=== PATIENT | female | born 2000 | race Caucasian/White ===

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

== ENCOUNTER → 2019-01-14 | Outpatient (CLI) | payer OTHER ==
--- NOTE | 2019-01-14 13:40 | Diagnostic Imaging Report ---
PROCEDURE: US Non-ob pelvis comp/trans. TECHNIQUE: Multiple real-time grayscale images were obtained of the pelvis in various projections endovaginally. Transabdominal imaging was also performed. INDICATION: Pelvic pain. FINDINGS: There are no prior studies available for comparison. The uterus is nongravid and not enlarged measuring 7.1 x 4.8 x 2.9 cm. The endometrial lining is not thickened measuring 5 Mm. There is no focal mass involving the uterus to suggest a fibroid. The left ovary was visualized and was generally unremarkable. The right ovary could not be identified with certainty as the pelvis was obscured by bowel gas. There is no pelvic mass or free fluid collection noted. IMPRESSION: 1. There is no evidence for an acute pelvic abnormality; however, part of the pelvis including the right ovary were obscured by overlying bowel gas. 2. If clinical concern regarding an acute abnormality persists, then CT will be recommended for further study. Dictated by: Dictated on workstation # [id number]
== END ==
LOC: RAD 11:12
PROVIDERS: ATTEND Nurse Practitioner
DX: R10.2 Pelvic and perineal pain (principal)
CPT/HCPCS: 76830; 76856

== ENCOUNTER 2019-03-15 17:51 | Emergency (ER) | payer OTHER ==
[~2019-03-15] VITALS: Ht 167.6 cm; Wt 54.0 kg
[~2019-03-15 17:51] MED LIST changes: -OMEP20CA12 PO; +OMEP20CA13 PO
--- NOTE | 2019-03-15 17:56 | NUR ---
pt c/o nausea w/o vomiting and denies diarrhea. pt has h/o constipation but denies this currently. pt also relates h/o hietel hernia. pt points to bilateral upper quads and epigastric area where pain is at. pt denies dyspnea and no acute sighns of dyspnea noted. lungs cta bilaterally. boyfriend says he mario needs to come out. pt denies ua c/os. c/o vaginal pain then also pointed to pelvic area for pain as well but couldnt tell me which abd area hurts worse. lmp just got done. abd soft nondistended tender to palpation bilateral left quads and epigastric area only. pt had facial grimace with palpation of epigastric area. done dae pt 1805.
--- NOTE | 2019-03-15 17:56 | NUR ---
pt here with " boyfriend". pt alert gcs 15. pt c/o abd pain x 1 yr. pt relates seen 1 yr ago and was told gallbladder does not need to come out. pain rating 5. pt also c/o nause
--- OUTSIDE RECORDS SUMMARY | 2019-03-15 17:57 | XMS REPORT | Continuity of Care Document ---
Author Organization Unknown Address Unknown Phone Unavailable Allergies There is no data. Medications There is no data. Problems Date Dx Coded Attending Type Code Diagnosis Diagnosed By 04/19/2009 CLIFF MONTES APRN 300.00 AN ANXIETY UNSPEC 04/19/2009 CLIFF MONTES APRN 311 MO DEPRESS NOS 04/19/2009 CLIFF MONTES APRN 312.9 UNSPECIFIED DISTURBANCE OF CONDUCT 08/16/2009 CLIFF MONTES APRN 616.10 VAGINITIS VULVOVAGINITIS UNSPECIFIED 05/17/2014 CLIFF MONTES APRN V25.9 CONTRACEPTION MANAGEMENT 05/17/2014 CLIFF MONTES APRN V74.5 STD SCREEN Procedures Code Description [place] [address] TEST, URINE (IN-HOUSE) 05/17/2014 J1050 DEPO PROVERA 05/17/2014 29865 THERAPUTIC INJ SQ/IM 05/17/2014 81364 GC/CHLAM URINE (STATE) 05/18/2014 Results Test Result Range CMP - 01/09/19 16:32 GLUCOSE 55 mg/dL 65-99 UREA NITROGEN (BUN) 9 mg/dL 7-25 CREATININE 0.74 mg/dL 0.50-1.10 eGFR NON-AFR. CITIZEN OF [place] 117 mL/min/1.73m2 > OR=60 eGFR 135 mL/min/1.73m2 > OR=60 BUN/CREATININE RATIO NOT APPLICABLE (calc) 6-22 SODIUM 141 mmol/L 135-146 POTASSIUM 4.1 mmol/L 3.5-5.3 CHLORIDE 106 mmol/L 98-110 CARBON DIOXIDE 29 mmol/L 20-32 CALCIUM 9.7 mg/dL 8.6-10.2 PROTEIN, TOTAL 7.4 g/dL 6.1-8.1 ALBUMIN 4.8 g/dL 3.6-5.1 GLOBULIN 2.6 g/dL (calc) 1.9-3.7 ALBUMIN/GLOBULIN RATIO 1.8 (calc) 1.0-2.5 BILIRUBIN, TOTAL 0.4 mg/dL 0.2-1.2 ALKALINE PHOSPHATASE 46 U/L 33-115 AST 16 U/L 10-30 ALT 14 U/L 6-29 CBC - 01/09/19 16:32 WHITE BLOOD CELL COUNT 7.1 Thousand/uL 3.8-10.8 RED BLOOD CELL COUNT 4.07 Million/uL 3.80-5.10 HEMOGLOBIN 12.7 g/dL 11.7-15.5 HEMATOCRIT 38.8 % 35.0-45.0 MCV 95.3 fL 80.0-100.0 MCH 31.2 pg 27.0-33.0 MCHC 32.7 g/dL 32.0-36.0 RDW 11.9 % 11.0-15.0 PLATELET COUNT 216 Thousand/uL 140-400 MPV 10.9 fL 7.5-12.5 ABSOLUTE NEUTROPHILS 3820 cells/uL 9263-0546 ABSOLUTE LYMPHOCYTES 2826 cells/uL 850-3900 ABSOLUTE MONOCYTES 426 cells/uL 200-950 ABSOLUTE EOSINOPHILS 21 cells/uL 15-500 ABSOLUTE BASOPHILS 7 cells/uL 0-200 NEUTROPHILS 53.8 % NRG LYMPHOCYTES 39.8 % NRG MONOCYTES 6.0 % NRG EOSINOPHILS 0.3 % NRG BASOPHILS 0.1 % NRG GC/CHLAMYDIA (SWAB OR URINE)-RAPID - 01/27/19 14:10 CHLAMYDIA TRACHOMATIS RNA, TMA NOT DETECTED NOT DETECTED NEISSERIA GONORRHOEAE RNA, TMA NOT DETECTED NOT DETECTED COMMENT NRG Encounters ACCT No. Visit Date/Time Discharge Status Pt. Type Provider Facility Loc./Unit Complaint [id number] 05/17/2014 16:06:00 05/17/2014 23:59:59 CLS Outpatient CLIFF MONTES APRN [id number] 01/27/2019 13:45:00 01/27/2019 23:59:59 CLS Outpatient JENNY LINDO [id number] 01/27/2019 13:45:00 Document Registration [id number] 01/09/2019 16:00:00 Document Registration
--- OUTSIDE RECORDS SUMMARY | 2019-03-15 17:57 | XMS REPORT ---
Author Author Migration, Doctor Organization [facility] Address Unknown Phone Unavailable Care Team Providers Care Braider Tender Name Role Phone Migration, Doctor Unavailable Unavailable PROBLEMS Type Condition ICD9-CM Code SZP64-TH Code Onset Dates Condition Status SNOMED Code Problem Menorrhagia with regular cycle N92.0 Active [id number] ALLERGIES No Information ENCOUNTERS Encounter Location Date Diagnosis [facility] [address] [place] [address] Sep, Abdominal cramping R10.9 and Encounter for initial prescription of contraceptive pills Z30.011 [facility] [address] [place] [address] Aug, Sprain of other ligament of left ankle, initial encounter S93.492A [place] [address] [place] [id number] [place] [phone] Nov, [place] [address] [place] [id number] [place] [address] Mar, Encounter for Depo-Provera contraception Z30.42 [facility] [address] [place] [id number] [place] [phone] Mar, [place] [address] [id number] [place] [phone] Jan, Well woman exam without gynecological exam Z00.00 ; Encounter for surveillance of injectable contraceptive Z30.42 ; Screening breast examination Z12.39 ; Screening for STD sexually transmitted disease Z11.3 and Encounter for Depo-Provera contraception Z30.42 [place] [address] [place] [id number] [place] [phone] Jun, [place] [address] [place] [id number] [place] [phone] Jun, [place] [address] [place] [id number] [place] [phone] May, [facility] [address] [place] [address] May, [facility] [address] [place] [address] May, [facility] [address] [place] [address] May, [facility] [id number] [place] [phone] May, [facility] [address] [place] [address] May, [facility] [address] [place] [address] Mar, [facility] [address] [place] [address] Aug, [facility] [address] [place] [address] Jul, [facility] [address] [place] [address] Jul, IMMUNIZATIONS No Known Immunizations SOCIAL HISTORY Never Assessed REASON FOR VISIT [facility] PLAN OF CARE VITAL SIGNS MEDICATIONS No Known Medications RESULTS No Results PROCEDURES No Known procedures INSTRUCTIONS MEDICATIONS ADMINISTERED No Known Medications MEDICAL (GENERAL) HISTORY Type Description Date Surgical History Dental surgery 2016
--- NOTE | 2019-03-15 18:20 | NUR ---
pt to bathroom for ua. v/o dr bernal while ago ua and ua hcg.
--- NOTE | 2019-03-15 18:28 | NUR ---
ua hcg start. 183 ua hcg end. result ua hcg is negative .
--- NOTE | 2019-03-15 18:29 | NUR ---
ua to lab by
[2019-03-15 18:33] LABS: BILIRUBIN,URINE NEGATIVE (NEGATIVE); CLARITY,URINE CLEAR; COLOR,URINE YELLOW; GLUCOSE, URINE (UA) NEGATIVE (NEGATIVE); KETONES,URINE 1+ (NEGATIVE); LEUKOCYTE ESTERASE ,URINE 1+ (NEGATIVE); NITRITE,URINE NEGATIVE (NEGATIVE); PH,URINE 6.5 (5-9); PROTEIN,URINE NEGATIVE (NEGATIVE); UROBILINOGEN,URINE 1 MG/DL (NORMAL)
[2019-03-15 18:44] LABS: BACTERIA,URINE FEW /HPF; WBC,URINE RARE /HPF
[2019-03-15] MEDS ORDERED: NS IV 1000 ML 1,000 ML IV ONE (19:18)
--- NOTE | 2019-03-15 19:34 | NUR ---
i went to room to start iv and do labs.and ivf. pt okd the iv and labs and refused the ivf.
--- NOTE | 2019-03-15 19:37 | ED Abdominal Pain ---
General Chief Complaint: Abdominal/GI Problems Stated Complaint: STOMACH PAIN Nursing Triage Note: abd pain x 1 yr. Sepsis Screen: No Definite Risk Source of Information: Patient Exam Limitations: No Limitations History of Present Illness Date Seen by Provider: Mar 15, 2019 Time Seen by Provider: 19:00 Initial Comments Here with complaint of upper abdominal pain that's been intermittent over the last year. States that she has had pain that is achy in nature and associated with nausea but no vomiting. She is a daily marijuana smoker. She has had evaluation for gallbladder last year and had HIDA scan that was apparently negative. She intermittently takes some sort of acid windsmith that she believes may be famotidine or omeprazole. States that she does not really have an appetite except for when she smokes marijuana and then usually only eats once daily. Denies diarrhea. Denies dysuria. Timing/Duration: 1 Week, Getting Worse Severity/Quality: Moderate, Aching Location: Epigastric Radiation: No Radiation Activities at Onset: None Modifying Factors: Improves With Resting Associated Symptoms: No Back Pain, No Chest Pain, No Fever/Chills; Nausea/Vomit ing Allergies and Home Medications Allergies Coded Allergies: No Known Drug Allergies (Unverified , 11/12/17) Patient Home Medication List Home Medication List Reviewed: Yes Review of Systems Review of Systems Constitutional: see HPI; No chills, No fever EENTM: No Symptoms Reported Respiratory: No Symptoms Reported Cardiovascular: No Symptoms Reported Gastrointestinal: See HPI, Abdominal Pain, Constipated; Denies Diarrhea; Nausea Genitourinary: No Symptoms Reported Musculoskeletal: no symptoms reported All Other Systems Reviewed Negative Unless Noted: Yes Past Okjqvhl-Icmnwy-Kwnouh Hx Past Med/Social Hx: Reviewed Nursing Past Med/Soc Hx Patient Social History Alcohol Use: Rarely Uses Recreational Drug Use: Yes (" marijuana" daily) Drug of Choice: Marijuana Smoking Status: Current Everyday Smoker Type Used: Cigarettes Recent Foreign Travel: No Contact w/Someone Who Travel: No Recent Infectious Disease Expo: No Recent Hopitalizations: No Physical Abuse: No Sexual Abuse: No Seasonal Allergies Seasonal Allergies: No Past Medical History Surgeries: Yes (wisdom teeth) Abdominal Respiratory: No Cardiac: No Neurological: No Reproductive Disorders: No Genitourinary: No Gastrointestinal: Yes (gastritis) Hiatal Hernia Musculoskeletal: No Endocrine: No HEENT: No Cancer: No Psychosocial: Yes Anxiety, Depression Integumentary: No Blood Disorders: No Family Medical History Reviewed Nursing Family Hx No Pertinent Family Hx Physical Exam Vital Signs Vital Signs - First Documented 03/15/19 17:56 Temp 98.4 Pulse 72 Resp 16 B/P (MAP) 111/70 (84) Pulse Ox 99 O2 Delivery Room Air Capillary Refill : Less Than 3 Seconds Height/Weight/BMI Height: 5'6.00" Weight: 119lbs. 0.0oz. 53.956083kf; 14.06 BMI Method:Stated General Appearance: WD/WN, no apparent distress HEENT: PERRL/EOMI, pharynx normal Neck: full range of motion, supple Respiratory: lungs clear, normal breath sounds Cardiovascular: regular rate, rhythm, no murmur Gastrointestinal: non tender, soft Extremities: non-tender, normal inspection Back: normal inspection, no CVA tenderness, no vertebral tenderness Neurologic/Psychiatric: alert, oriented x 3 Skin: normal color, warm/dry Progress/Results/Core Measures Results/Orders Lab Results Laboratory Tests Test 03/15/19 18:27 Range/Units Urine Color YELLOW Urine Clarity CLEAR Urine pH 6.5 5-9 Urine Specific [place] 1.015 L 1.016-1.022 Urine Protein NEGATIVE NEGATIVE Urine Glucose (UA) NEGATIVE NEGATIVE Urine Ketones 1+ H NEGATIVE Urine Nitrite NEGATIVE NEGATIVE Urine Bilirubin NEGATIVE NEGATIVE Urine Urobilinogen 1 NORMAL MG/DL Urine Leukocyte Esterase 1+ H NEGATIVE Urine RBC (Auto) NEGATIVE NEGATIVE Urine RBC NONE /HPF Urine WBC RARE /HPF Urine Squamous Epithelial Cells 10-25 H /HPF Urine Crystals NONE /LPF Urine Bacteria FEW H /HPF Urine Casts NONE /LPF Urine Mucus LARGE H /LPF Urine Culture Indicated NO Urine Test NEGATIVE NEGATIVE My Orders Orders - JENNIFER GUERRERO MD Ua Culture If Indicated (03/15/19 18:24) Hcg,Qualitative Urine (03/15/19 18:26) Cbc With Automated Diff (03/15/19 19:18) Comprehensive Metabolic Panel (03/15/19 19:18) Hs C Reactive Protein (03/15/19 19:18) Magnesium (03/15/19 19:18) Thyroid Stimulating Hormone (03/15/19 19:18) Ed Iv/Invasive Line Start (03/15/19 19:18) Ns Iv 1000 Ml (Sodium Chloride 0.9%) (03/15/19 19:18) Vital Signs/I&O 03/15/19 17:56 Temp 98.4 Pulse 72 Resp 16 B/P (MAP) 111/70 (84) Pulse Ox 99 O2 Delivery Room Air Blood Pressure Mean: 84 Progress Progress Note : Progress Note Seen and evaluated. IV, labs, UA and UCG ordered. Normal saline 1 L bolus. Monitor patient. 1954: I was informed by nursing the patient left AGAINST MEDICAL ADVICE prior to lab being complete. No discharge instructions given. Departure Impression Primary Impression: Abdominal pain Qualified Codes: R10.13 - Epigastric pain Disposition: 07 AGAINST MEDICAL ADVICE Condition: Stable/Unchanged Departure-Patient Inst. Decision time for Depature: 19:54 Referrals: [facility] (PCP) Primary Care Physician JENNY LINDO (Family) Primary Care Physician Patient Instructions: Leaving Against Medical Advice Add. Discharge Instructions: All discharge instructions reviewed with patient and/or family. Voiced understanding. Left AGAINST MEDICAL ADVICE. No discharge instructions given. Instructed return for any concerns. JENNIFER GUERRERO MD Mar 15, 2019 19:37
--- NOTE | 2019-03-15 19:39 | NUR ---
labs with iv by me x 1 18 g left acf.
--- NOTE | 2019-03-15 19:40 | NUR ---
pt says she wants to leave and asked if we can call results of the lab. i said probably not but i can ask the dr. she said ask.
--- NOTE | 2019-03-15 19:41 | NUR ---
i caught in the schrader. says no.
--- NOTE | 2019-03-15 19:41 | NUR ---
pt wants to leave. pt wants iv out. pt said she will call her dr in am.
--- NOTE | 2019-03-15 19:46 | NUR ---
iv d/cd by me
[2019-03-15 19:47] VITALS: BP 0/0
--- NOTE | 2019-03-15 19:47 | NUR ---
i did not send labs to lab since pt left [facility].
--- NOTE | 2019-03-15 19:47 | NUR ---
i filled out [facility] form and sighned it with the pt. pt requests dr huggins. denied by me and pt said " why not" i again denied the request. boyfriend said " this place is a joke just like all the other places". then both of them left afer i told them to check out with registration.
== END 2019-03-15 19:47 | disposition left against medical advice (07) ==
LOC: EDUNIT# 17:51 → ER 17:53
DX: R10.13 Epigastric pain (principal); F41.9 Anxiety disorder, unspecified; F32.9 Major depressive disorder, single episode, unspecified; F12.10 Cannabis abuse, uncomplicated; F17.210 Nicotine dependence, cigarettes, uncomplicated
CPT/HCPCS: 81000; 84703